=== PATIENT | female | born 1985 | race Caucasian/White ===

== ENCOUNTER → 2016-10-17 | Outpatient (CLI) | payer OTHER ==
[~2016-10-17] MED LIST: ATIVAN0.5 MG PO; FLEXERIL5 MG PO; MOTRIN800 MG PO; PROZAC10 MG PO
[2016-10-17 10:14] LABS: HEMATOCRIT 32.4 % (37.0-47.0); HEMOGLOBIN 10.2 g/dl (12.0-16.0); MEAN CELL VOLUME 63.8 fl (81.0-99.0); MEAN CORPUSCULAR HGB 20.1 pg (27.0-31.0); MEAN CORPUSCULAR HGB CONC 31.5 g/dl (33.0-37.0); PLATELET COUNT AUTOMATED 214 10*3/uL (130-400); RED BLOOD COUNT 5.08 10*6/uL (4.10-5.10); WHITE BLOOD COUNT 5.8 10*3/uL (4.8-10.8)
[2016-10-17 10:45] LABS: ALKALINE PHOSPHATASE 57 U/L (45-117); BILIRUBIN, TOTAL 0.8 mg/dl (0.2-1.0); BUN 10 mg/dl (7-24); CARBON DIOXIDE 26 mmol/L (21-32); EST GLOM FILT AFRICAN AMERICAN > 60 ml/min; SGOT/AST 13 IU/L (3-35); SGPT/ALT 13 U/L (12-78)
[2016-10-17 11:01] LABS: ALBUMIN 4.2 gm/dl (3.1-4.5); CHLORIDE 103 mmol/L (98-107); CHOLESTEROL 130 mg/dL (<200); GLUCOSE 112 mg/dL (65-99); SODIUM 140 mmol/L (136-145); TOTAL PROTEIN 7.7 gm/dL (6.4-8.2); VLDL CHOLESTEROL 16 mg/dL (6-40)
[2016-10-17 11:04] LABS: HDL CHOLESTEROL 54 mg/dl (40-60); LDL CHOLESTEROL 60 mg/dL (9-159); TRIGLYCERIDES 78 mg/dl (<150)
== END | disposition home or self-care (01) ==
LOC: LAB 09:56
PROVIDERS: Family Medicine
DX: E78.00 Pure hypercholesterolemia, unspecified (principal); E55.9 Vitamin D deficiency, unspecified; R53.83 Other fatigue; D64.9 Anemia, unspecified; E66.9 Obesity, unspecified

== ENCOUNTER → 2017-01-16 | Outpatient (CLI) | payer OTHER ==
[2017-01-16 10:18] LABS: HEMATOCRIT 30.4 % (37.0-47.0); HEMOGLOBIN 9.3 g/dl (12.0-16.0); MEAN CORPUSCULAR HGB 19.9 pg (27.0-31.0); MEAN CORPUSCULAR HGB CONC 30.6 g/dl (33.0-37.0); PLATELET COUNT AUTOMATED 220 10*3/uL (130-400); RED BLOOD COUNT 4.68 10*6/uL (4.10-5.10); RED CELL DISTRI WIDTH 16.2 % (0-14.5); WHITE BLOOD COUNT 5.9 10*3/uL (4.8-10.8)
== END | disposition home or self-care (01) ==
LOC: LAB 09:43
PROVIDERS: Family Medicine
DX: D64.9 Anemia, unspecified (principal)

== ENCOUNTER → 2017-06-10 | Outpatient (CLI) | payer OTHER | END | disposition home or self-care (01) | LOC: LAB 13:39 | DX: E53.8 Deficiency of other specified B group vitamins (principal) ==

== ENCOUNTER → 2017-08-30 | Outpatient (CLI) | payer OTHER ==
[2017-08-30 13:40] LABS: HEMATOCRIT 31.5 % (37.0-47.0); HEMOGLOBIN 9.8 g/dl (12.0-16.0); MEAN CELL VOLUME 65.6 fl (81.0-99.0); MEAN CORPUSCULAR HGB 20.4 pg (27.0-31.0); MEAN CORPUSCULAR HGB CONC 31.1 g/dl (33.0-37.0); NUCLEATED RED BLOOD CELL 0.6 % (0.0-0.0); PLATELET COUNT AUTOMATED 206 10*3/uL (130-400); RED CELL DISTRI WIDTH 16.5 % (0-14.5); WHITE BLOOD COUNT 5.4 10*3/uL (4.8-10.8)
== END | disposition home or self-care (01) ==
LOC: LAB 12:45
PROVIDERS: Family Medicine
DX: D64.9 Anemia, unspecified (principal)

== ENCOUNTER → 2022-07-24 | Outpatient (CLI) | payer OTHER ==
[2022-07-24 10:38] LABS: HEMATOCRIT 37.6 % (37.0-47.0); MEAN CELL VOLUME 61.9 fl (81.0-99.0); MEAN CORPUSCULAR HGB 18.8 pg (27.0-31.0); MEAN CORPUSCULAR HGB CONC 30.3 g/dl (33.0-37.0); MEAN PLATELET VOLUME 9.8 fl (9.6-12.3); RED BLOOD COUNT 6.07 10*6/uL (4.10-5.10); RED CELL DISTRI WIDTH 17.1 % (0-14.5); WHITE BLOOD COUNT 6.2 10*3/uL (4.8-10.8)
[2022-07-24 11:22] LABS: ALKALINE PHOSPHATASE 61 U/L (46-116); BUN 7 mg/dl (9-23); CHLORIDE 101 mmol/L (98-107); CHOLESTEROL 183 mg/dL (<200); LDL CHOLESTEROL 82 mg/dL (9-159); SGPT/ALT < 7 U/L (10-49); TOTAL PROTEIN 7.5 gm/dL (6.0-8.0); TRIGLYCERIDES 137 mg/dl (<150)
== END | disposition home or self-care (01) ==
LOC: LAB 10:23
PROVIDERS: ATTEND Family Medicine
DX: Z00.00 Encounter for general adult medical examination without abnormal findings (principal); J40 Bronchitis, not specified as acute or chronic; J32.9 Chronic sinusitis, unspecified

== ENCOUNTER → 2023-07-22 | Outpatient (CLI) | payer OTHER ==
[2023-07-22 09:46] LABS: HEMATOCRIT 32.7 % (37.0-47.0); MEAN CELL VOLUME 63.5 fl (81.0-99.0); MEAN CORPUSCULAR HGB 19.8 pg (27.0-31.0); MEAN CORPUSCULAR HGB CONC 31.2 g/dl (33.0-37.0); MEAN PLATELET VOLUME 11.2 fl (9.6-12.3); RED BLOOD COUNT 5.15 10*6/uL (4.10-5.10); RED CELL DISTRI WIDTH 15.9 % (0-14.5); WHITE BLOOD COUNT 5.8 10*3/uL (4.8-10.8)
[2023-07-22 10:04] LABS: ALKALINE PHOSPHATASE 59 U/L (46-116); BUN 8 mg/dl (9-23); CHLORIDE 101 mmol/L (98-107); CHOLESTEROL 196 mg/dL (<200); LDL CHOLESTEROL 88 mg/dL (9-159); POTASSIUM 3.8 mmol/L (3.4-5.1); SGPT/ALT 7 U/L (5-49); TRIGLYCERIDES 139 mg/dl (<150)
== END | disposition home or self-care (01) ==
LOC: LAB 09:25
PROVIDERS: ATTEND Family Medicine
DX: E55.9 Vitamin D deficiency, unspecified (principal); E78.00 Pure hypercholesterolemia, unspecified; Z79.899 Other long term (current) drug therapy

== ENCOUNTER → 2024-04-28 | Outpatient (CLI) | payer OTHER ==
[2024-04-28 08:58] LABS: HEMATOCRIT 33.5 % (37.0-47.0); MEAN CELL VOLUME 63.3 fl (81.0-99.0); MEAN CORPUSCULAR HGB 19.5 pg (27.0-31.0); MEAN CORPUSCULAR HGB CONC 30.7 g/dl (33.0-37.0); MEAN PLATELET VOLUME 10.4 fl (9.6-12.3); RED BLOOD COUNT 5.29 10*6/uL (4.10-5.10); WHITE BLOOD COUNT 6.1 10*3/uL (4.8-10.8)
[2024-04-28 09:22] LABS: ALKALINE PHOSPHATASE 69 U/L (46-116); BUN 7 mg/dl (9-23); CHLORIDE 99 mmol/L (98-107); POTASSIUM 3.8 mmol/L (3.4-5.1); TOTAL PROTEIN 7.3 gm/dL (6.0-8.0)
[2024-04-28 09:26] LABS: SGPT/ALT < 7 U/L (5-49)
== END | disposition home or self-care (01) ==
LOC: LAB 08:30
PROVIDERS: ATTEND Family Medicine
DX: E55.9 Vitamin D deficiency, unspecified (principal); E87.1 Hypo-osmolality and hyponatremia